=== PATIENT | female | born 1985 | race Caucasian/White ===

== ENCOUNTER 2024-03-15 23:10 | Emergency (ER) | payer MEDICAID, SELFPAY ==
[2024-03-15 23:12] VITALS: BMI 28.2
--- NOTE | 2024-03-16 00:07 | PC.NURSE ---
pt called from lobby with no answer x1
--- NOTE | 2024-03-16 00:16 | PC.NURSE ---
Pt called from lobby x2 with no answer. patrol guard informed me that pt was seen walking away from er.
--- NOTE | 2024-03-16 00:27 | PC.NURSE ---
pt called from lobby x3 with no answer.
== END 2024-03-16 00:27 | disposition left against medical advice (07) ==
PROVIDERS: Emergency Provider Emergency Medicine
DX: Z53.21 Procedure and treatment not carried out due to patient leaving prior to being seen by health care provider (principal)

== ENCOUNTER 2024-05-30 15:29 | Emergency (ER) | payer MEDICAID, SELFPAY ==
[2024-05-30 15:30] VITALS: BMI 28.0
[2024-05-30 16:05] VITALS: BP 126/57; PULSE 110; RESP 17; TEMP 36.9; O2SAT 97
--- NOTE | 2024-05-30 16:08 | XR_ITS ---
Examination: Shoulder,left, 3 views Technique: Shoulder AP internal rotation, AP external rotation, Y view shoulder, 3 views Exam date and time :May 30, 2024 1623 hrs. Indications: Onset shoulder pain and numbness today Findings: No shoulder fracture or shoulder dislocation Mild narrowing glenohumeral joint Mild osteoarthritis acromioclavicular joint No calcific tendinitis Impression: Mild narrowing glenohumeral joint
--- NOTE | 2024-05-30 16:09 | EDRME_ITS ---
Rapid Medical Screening Exam [facility] Arrival date/time: 05/30/24 15:29 38-year-old female presents to the emergency department complaining of left shoulder pain that radiates down the left arm and is causing intermittent numbness. Patient denies any recent trauma or injury. Patient reports took a Vicodin before coming to the hospital. Chief Complaint: Extremity Injury, Upper Vital signs: Vital Signs Temperature 98.5 F 05/30/24 16:05 Pulse Rate 110 H 05/30/24 16:05 Respiratory Rate 17 05/30/24 16:05 Blood Pressure 126/57 L 05/30/24 16:05 Pulse Oximetry (%) 97 05/30/24 16:05 Oxygen Delivery Method Room Air 05/30/24 16:05 Vital signs reviewed by provider: Yes
[2024-05-30] MEDS: DIAZEPAM 5 MG TABLET PO (16:42)
--- NOTE | 2024-06-15 01:39 | PD.EDUPEX ---
Upper Extremity Injury RME/HPI General Chief Complaint: Extremity Injury, Upper Stated Complaint: NUMBESS TO LEFT ARM, X 2 WEEKS Time Seen by Provider: 05/30/24 16:10 Source: patient Arrival date/time: 05/30/24 15:29 38-year-old female presents to the emergency department complaining of left shoulder pain that radiates down the left arm and is causing intermittent numbness. Patient denies any recent trauma or injury. Patient reports took a Vicodin before coming to the hospital. Mode of arrival: ambulatory Limitations: no limitations RME / HPI RME / HPI narrative: 05/30/24 15:29 38-year-old female presents to the emergency department complaining of left shoulder pain that radiates down the left arm and is causing intermittent numbness. Patient denies any recent trauma or injury. Patient reports took a Vicodin before coming to the hospital. Related Data Previous Rx's ?Medication ?Instructions ?Recorded dicyclomine 20 mg tablet 20 mg PO QID PRN abdominal pain 12/10/23 #14 tabs ondansetron 4 mg disintegrating 4 mg PO Q8H PRN nausea and 02/02/24 tablet vomiting #10 tabs acetaminophen 500 mg tablet 1,000 mg (2 x 500 mg) PO QID PRN 03/07/24 pain #20 tabs acetaminophen 500 mg capsule 500 mg PO Q6H PRN pain #30 caps 05/30/24 cyclobenzaprine 10 mg tablet 10 mg PO TID PRN muscle spasm #10 05/30/24 tabs Allergies Allergy/AdvReac Type Severity Reaction Status Date / Time ketorolac Allergy Severe Itching Verified 06/15/24 10:14 Review of Systems Review of Systems Systems Reviewed: All systems reviewed, normal except as documented Constitutional Constitutional: Reports system reviewed and no additional complaints, except as documented, Denies body ache(s), Denies chills and Denies fever(s) Eyes Eyes: Reports system reviewed and no additional complaints, except as documented and Denies change in vision ENT Ears, Nose, Mouth, and Throat: Reports system reviewed and no additional complaints, except as documented, Denies disequilibrium, Denies dizziness, Denies sore throat and Denies vertigo Cardiovascular Cardiovascular: Reports system reviewed and no additional complaints, except as documented, Denies chest pain and Denies dyspnea Respiratory Respiratory: Reports system reviewed and no additional complaints, except as documented, Denies chest congestion, Denies cough and Denies dyspnea Gastrointestinal Gastrointestinal: Reports system reviewed and no additional complaints, except as documented, Denies abdominal pain, Denies nausea and Denies vomiting Musculoskeletal Musculoskeletal: Denies abnormal gait and Reports arthralgias Integumentary/Breasts Skin/Breast: Reports system reviewed and no additional complaints, except as documented, Denies erythema, Denies rash and Denies wounds Neurologic Neurologic: Reports system reviewed and no additional complaints, except as documented, Denies abnormal gait, Denies disequilibrium, Denies dizziness and Denies vertigo Past Medical History Past Medical History NEUROLOGIC: Positive Migraine; Negative Neurological Disorders CARDIAC: Negative Cardiac Disorders, Atrial Fibrillation, Angina, Atherosclerotic Heart Disease, Aneurysm or Congestive Heart Failure RESPIRATORY: Negative Chronic Obstructive Pulmonary Disease (COPD) or Asthma GASTROINTESTINAL: Positive Hepatitis; Negative Gastrointestinal Disorders GENITOURINARY: Positive Genitourinary Disorders; Negative Renal Disease REPRODUCTIVE: Positive Syphilis MUSCULOSKELETAL: Positive Fibromyalgia; Negative Musculoskeletal Disorders ENDOCRINE: Negative Diabetes Mellitus Type 1 or Diabetes Mellitus Type 2 HEMATOLOGIC: Negative Sickle Cell Disease PSYCHO/SOCIAL: Positive Bipolar Disorder, Behavior Problems and Post Traumatic Stress Disorder OTHER HISTORY: Positive MRSA; Negative Autoimmune Disease or Blood Transfusions Family History FAMILY HISTORY: Negative Family Psychiatric Problems, Family Respiratory Disorders, Family Cardiac Disorders, Family Gastrointestinal Problems, Family Cancer, Family Surgery or Family Anesthesia Reaction Surgical History SURGICAL: Positive Abdominal Surgery, Hysterectomy and Tubal Ligation Social History SMOKING STATUS: Heavy (> 1 pack/day) SUBSTANCE USE: marijuana and methamphetamine ED Exam General Limitations: Present no limitations General appearance: Present alert and in no apparent distress Head Head exam: Present atraumatic Eye Eye exam: Present normal appearance, PERRL and EOMI ENT ENT exam: Present normal exam, normal oropharynx and mucous membranes moist Neck Neck exam: Present normal inspection, full ROM and trachea midline Chest Chest inspection: Present normal inspection and symmetric chest wall rise Respiratory Respiratory exam: Present normal lung sounds bilaterally Cardiovascular Cardiovascular exam: Present regular rate, normal rhythm and normal heart sounds Abdominal Exam Abdominal exam: Present soft and normal bowel sounds Extremities Exam Extremities exam: Present normal inspection and full ROM Expanded Upper Extremity Exam Shoulder exam: Present tenderness (left shoulder) Back Exam Back exam: Present normal inspection and full ROM Neurological Exam Neurological exam: Present alert, oriented X3 and CN II-XII intact Psychiatric Psychiatric exam: Present normal affect and normal mood Skin Skin exam: Present warm, dry, intact and normal color Course Quality Measures none Orders Category Date Time Status XR shoulder LT min 2V Stat Exams 05/30/24 16:08 Completed Diazepam [Valium] Med 05/30/24 16:08 Discontinued 5 mg PO X1 ONE Vital Signs Vital signs: Vital Signs Temperature 98.5 F 05/30/24 16:05 Pulse Rate 110 H 05/30/24 16:05 Respiratory Rate 17 05/30/24 16:05 Blood Pressure 126/57 L 05/30/24 16:05 Pulse Oximetry (%) 97 05/30/24 16:05 Oxygen Delivery Method Room Air 05/30/24 16:05 97% RA WNL Extremity Injury MDM Narrative MDM Narrative:: 38-year-old female presents to the emergency department complaining of left shoulder pain that radiates down the left arm and is causing intermittent numbness. Patient denies any recent trauma or injury. Patient reports took a Vicodin before coming to the hospital. XR negative for acute fracture or dislocation. Patient gcs 15 LUE neurovascularly intact. Instructed f/u with pcp and request MRI if symptoms persist. Patient data External records reviewed:: [facility] previous records Clinical information provided by:: patient Social determinants that could affect healthcare access:: none Patient has the following chronic illnesses:: see chart How is presenting disease/condition affected by chronic disease/condition?: exacerbated by Evaluation data The following diagnostics were reviewed and interpreted by me:: radiology exam(s) Lab and/or radiology exams considered but not ordered:: ordered Interpretation Summary: interpreted by me Medications / Prescriptions Medications or Prescriptions considered but not ordered:: ordered Medication administrations:: Medication Administration History Discontinued Medications Diazepam (Diazepam 5 Mg Tablet) 5 mg PO X1 ONE Stop: 05/30/24 16:09 Last Admin: 05/30/24 16:42 Dose: 5 mg Documented By: EE given Consultations Consultation(s) initiated? (list below): No Diagnosis Upper Extremity Injury Differential Diagnosis: dislocation of shoulder Most likely diagnosis given after review of the tests above:: osteoarthritis left shoulder Admission Indicated Admission indicated?: not indicated Admission Request Was there a request for admission?: No Disposition Plan Disposition Plan: Discharge Discharge Attestation Discharge Attestation: The patient and all family members were given an opportunity to ask questions and understood the discharge instructions. Discharge instructions specifically effects, indications for sooner follow up or return to the emergency department, and the expected course of current diagnosis. Patient condition: Stable Discharge Plan Plan Patient Disposition: HOME (Self Care) Disposition Comment: Stable Prescriptions/Referrals Prescriptions/Med Rec: New cyclobenzaprine 10 mg tablet 10 mg PO TID PRN (Reason: muscle spasm) Qty: 10 0RF acetaminophen 500 mg capsule 500 mg PO Q6H PRN (Reason: pain) Qty: 30 0RF No Action ondansetron 4 mg tablet,disintegrating 4 mg PO Q8H PRN (Reason: nausea and vomiting) Qty: 10 0RF acetaminophen 500 mg tablet 1,000 mg PO QID PRN (Reason: pain) Qty: 20 0RF dicyclomine 20 mg tablet 20 mg PO QID PRN (Reason: abdominal pain) Qty: 14 0RF Problem List Clinical Impression: Osteoarthritis of left shoulder Patient/Caregiver Discharge Instructions Discharge Activity: activity as tolerated Education Materials: Arthritis: Exercise, ED Osteoarthritis Additional Instructions: Take medication as prescribed. Follow-up with primary care provider and request physical therapy or MRI of left shoulder if symptoms persist. Return to emergency department for any worsening symptoms or as needed. Print Language: Gabonese Stand Alone Forms: Terese Award Info., Patient Portal Info Letter PA/PNEUMATIC HOIST OPERATOR Supervising Physician PA/PNEUMATIC HOIST OPERATOR Supervising Physician: Dr. Love
== END 2024-05-30 17:14 | disposition home or self-care (01) ==
LOC: SERX 16:57
PROVIDERS: Emergency Provider Emergency Medicine
DX: M19.012 Primary osteoarthritis, left shoulder (principal)
CPT/HCPCS: 73030; 99283; A9270

== ENCOUNTER 2024-06-15 10:12 | Emergency (ER) | payer MEDICAID, SELFPAY ==
[2024-06-15 10:22] VITALS: BP 111/79; PULSE 109; RESP 16; TEMP 36.7; O2SAT 98; BMI 28.3
--- NOTE | 2024-06-15 10:29 | EDNOTE_ITS ---
ED Dental RME/HPI General Chief complaint: Dental/Oral/Throat Stated complaint: UPPER ABSCESS TOOTH INFECTION SPREADING; ABX TAKEN Time Seen by Provider: 06/15/24 10:17 Arrival date/time: 06/15/24 10:12 38-year-old female currently homeless with history of methamphetamine presents the emergency department complaints of dental pain patient states that she does have poor dentition but reports right upper facial pain patient reports that she was on clindamycin and currently on amoxicillin Limitations: no limitations Related Data Previous Rx's ?Medication ?Instructions ?Recorded dicyclomine 20 mg tablet 20 mg PO QID PRN abdominal pain 12/10/23 #14 tabs ondansetron 4 mg disintegrating 4 mg PO Q8H PRN nausea and 02/02/24 tablet vomiting #10 tabs acetaminophen 500 mg tablet 1,000 mg (2 x 500 mg) PO QID PRN 03/07/24 pain #20 tabs acetaminophen 500 mg capsule 500 mg PO Q6H PRN pain #30 caps 05/30/24 cyclobenzaprine 10 mg tablet 10 mg PO TID PRN muscle spasm #10 05/30/24 tabs Allergies Allergy/AdvReac Type Severity Reaction Status Date / Time ketorolac Allergy Severe Itching Verified 06/15/24 10:14 Review of Systems Review of Systems Systems Reviewed: All systems reviewed, normal except as documented Constitutional Constitutional: Reports system reviewed and no additional complaints, except as documented, Denies fever(s) and Denies headache(s) Eyes Eyes: Reports system reviewed and no additional complaints, except as documented and Denies blurry vision ENT Ears, Nose, Mouth, and Throat: Reports system reviewed and no additional complaints, except as documented, Reports dental pain, Reports facial pain, Denies headache(s), Denies nasal congestion and Denies nasal discharge Cardiovascular Cardiovascular: Reports system reviewed and no additional complaints, except as documented, Denies chest pain and Denies dyspnea Respiratory Respiratory: Reports system reviewed and no additional complaints, except as documented, Denies chest congestion, Denies cough and Denies dyspnea Gastrointestinal Gastrointestinal: Reports system reviewed and no additional complaints, except as documented and Denies abdominal pain Integumentary/Breasts Skin/Breast: Reports system reviewed and no additional complaints, except as documented and Denies rash Neurologic Neurologic: Reports system reviewed and no additional complaints, except as documented, Reports as per HPI and Denies headache(s) Past Medical History Past Medical History NEUROLOGIC: Negative Neurological Disorders CARDIAC: Negative Cardiac Disorders ED Exam General Limitations: Present no limitations General appearance: Present alert and in no apparent distress Head Head exam: Present atraumatic, normocephalic and normal inspection Eye Eye exam: Present normal appearance, PERRL and EOMI; Absent conjunctival injection ENT ENT exam: Present mucous membranes moist and other (Dental pain) Neck Neck exam: Present normal inspection, full ROM and trachea midline Chest Chest inspection: Present normal inspection and symmetric chest wall rise Respiratory Respiratory exam: Present normal lung sounds bilaterally; Absent respiratory distress Cardiovascular Cardiovascular exam: Present regular rate, normal rhythm and normal heart sounds Abdominal Exam Abdominal exam: Present soft and normal bowel sounds Extremities Exam Extremities exam: Present normal inspection and full ROM Back Exam Back exam: Present normal inspection and full ROM Neurological Exam Neurological exam: Present alert, oriented X3 and CN II-XII intact Psychiatric Psychiatric exam: Present normal affect and normal mood Skin Skin exam: Present warm, dry, intact and normal color Course Quality Measures none Orders Category Date Time Status HYDROcodone*/APAP 5/325 [Buckeye 5/325] Med 06/15/24 10:29 Discontinued 1 tab PO X1 ONE Lidocaine 1% 20 ml [Xylocaine 1% 20 ML] Med 06/15/24 10:29 Discontinued 2.1 ml INFL X1 ONE cefTRIAXone [Rocephin] Med 06/15/24 10:29 Discontinued 1,000 mg IM X1 ONE Vital Signs Vital signs: Vital Signs Temperature 98.0 F 06/15/24 10:22 Pulse Rate 109 H 06/15/24 10:22 Respiratory Rate 16 06/15/24 10:22 Blood Pressure 111/79 06/15/24 10:22 Pulse Oximetry (%) 98 06/15/24 10:22 Oxygen Delivery Method Room Air 06/15/24 10:22 O2 saturation 98% room air within normal limits Dental / Oral MDM Narrative MDM Narrative:: 38-year-old female currently homeless with history of methamphetamine presents the emergency department complaints of dental pain patient states that she does have poor dentition but reports right upper facial pain patient reports that she was on clindamycin and currently on amoxicillin On exam patient does not appear ill or toxic does not appear immediate distress Patient is Rocephin in the emergency department discharged home with antibiotics Patient discharged home in no distress to follow-up with dentist in the next 24 to 48 hours and for any worsening symptoms to return to the ER immediately Patient data External records reviewed:: [facility] previous records Clinical information provided by:: patient Social determinants that could affect healthcare access:: none (possibly homeless, pt did not disclose ) Patient has the following chronic illnesses:: mrsa in the past How is presenting disease/condition affected by chronic disease/condition?: no chronic disease Evaluation data The following diagnostics were reviewed and interpreted by me:: other (specify) (none ) Lab and/or radiology exams considered but not ordered:: N/A Interpretation Summary: none Medications / Prescriptions Medications or Prescriptions considered but not ordered:: Given Medication administrations:: Medication Administration History Discontinued Medications Hydrocodone Bitart/Acetaminophen (Hydrocodone/Apap 5/325 Tablet) 1 tab PO X1 ONE Stop: 06/15/24 10:30 Last Admin: 06/15/24 10:43 Dose: 1 tab Documented By: MARTINEZ Ceftriaxone Sodium (Ceftriaxone Sod Inj 1,000 Mg Vial) 1,000 mg IM X1 ONE Stop: 06/15/24 10:30 Last Admin: 06/15/24 10:44 Dose: 1,000 mg Documented By: TM Lidocaine HCl (Lidocaine Hcl 1% 20 Ml Vial) 2.1 ml INFL X1 ONE Stop: 06/15/24 10:30 Last Admin: 06/15/24 10:44 Dose: 2.1 ml Documented By: TM Given Consultations Consultation(s) initiated? (list below): No Diagnosis Dental Differential Diagnosis: gingival abscess, dental caries, toothache and dental abscess Most likely diagnosis given after review of the tests above:: Dental abscess Admission Indicated Admission indicated?: not indicated Admission Request Was there a request for admission?: No Disposition Plan Disposition Plan: Discharge Discharge Attestation Discharge Attestation: The patient and all family members were given an opportunity to ask questions and understood the discharge instructions. Discharge instructions specifically effects, indications for sooner follow up or return to the emergency department, and the expected course of current diagnosis. Patient condition: Stable Discharge Plan Plan Patient Disposition: HOME (Self Care) Disposition Comment: Stable Prescriptions/Referrals Prescriptions/Med Rec: No Action ondansetron 4 mg tablet,disintegrating 4 mg PO Q8H PRN (Reason: nausea and vomiting) Qty: 10 0RF acetaminophen 500 mg tablet 1,000 mg PO QID PRN (Reason: pain) Qty: 20 0RF cyclobenzaprine 10 mg tablet 10 mg PO TID PRN (Reason: muscle spasm) Qty: 10 0RF acetaminophen 500 mg capsule 500 mg PO Q6H PRN (Reason: pain) Qty: 30 0RF dicyclomine 20 mg tablet 20 mg PO QID PRN (Reason: abdominal pain) Qty: 14 0RF Problem List Clinical Impression: Pain, dental Patient/Caregiver Discharge Instructions Education Materials: ED Dental Pain Additional Instructions: Take all antibiotics as prescribed follow-up with dentist as soon as possible for worsening symptoms return immediately Print Language: Persian Stand Alone Forms: Terese Award Info., Patient Portal Info Letter PA/CONTROL CLERK AUDITING Supervising Physician PA/CONTROL CLERK AUDITING Supervising Physician: Dr Rodriguez
[2024-06-15] MEDS: HYDROcodone/APAP 5/325 TABLET 1 TAB PO (10:43)
[2024-06-15] MEDS: LIDOCAINE HCL 1% 20 ML VIAL 2.1 ML INFL (10:44)
[2024-06-15] MEDS: cefTRIAXone SOD INJ 1,000 MG VIAL 1000 MG IM (10:44)
--- NOTE | 2024-06-15 10:50 | PC.NURSE ---
SANDWICH, CHIPS, AND JELLO GIVEN TO PT AT DISCHARGE
== END 2024-06-15 10:49 | disposition home or self-care (01) ==
LOC: SERX 11:06
PROVIDERS: Emergency Provider Emergency Medicine; PCP Family Medicine
DX: K08.89 Other specified disorders of teeth and supporting structures (principal); Z59.00 Homelessness unspecified
CPT/HCPCS: 96372; 99283; J0696; J3490; A9270

== ENCOUNTER 2024-07-07 15:19 | Emergency (ER) | payer MEDICAID, SELFPAY ==
[2024-07-07 15:21] VITALS: BMI 28.0
[2024-07-07 15:34] VITALS: BP 113/77; PULSE 100; RESP 18; TEMP 36.7; O2SAT 99
--- NOTE | 2024-07-07 15:50 | XR_ITS ---
Examination: CT cervical spine without contrast 2-D sagittal reconstructions 2-D coronal reconstructions 3-D reconstructions. Exam date and time:July 07, 2024 1603 hours INDICATIONS: Patient fell 3 days ago with injury to the neck, neck pain COMPARISON: March 18, 2024 CTDI:vol (mGy) 8.41 DLP: (mGycm) 196 Technique: Multiple 2 mm axial sections of the cervical spine have been obtained. The coronal and sagittal reconstructions have been obtained. 3-D reconstructions have been obtained. Low dose protocols were performed. One or more of the following dose reduction techniques were used; automated exposure control, adjustment of the mA and/or KV according to patient size, use of iterative reconstruction technique. Findings: Axial sections demonstrate intact base of the skull. C1 exhibit satisfactory relationship to the odontoid. No acute cervical vertebral body fracture seen. Alignment posterior spinous processes satisfactory. Impression: No acute cervical fracture.
--- NOTE | 2024-07-07 15:50 | XR_ITS ---
Examination: CT brain head without contrast. 2-D sagittal coronal reconstructions Date and time of exam:July 07, 2024 1603 hours INDICATIONS: Patient fell 3 days ago with injury to the head, head pain CTDI: vol (mGy):50.7 DLP: (mGycm):1056 Technique: Multiple CT axial sections of the brain have been obtained, 5 mm slice thickness. Contrast has not been administered. 2-D sagittal, coronal reconstructions have been obtained Low dose protocols were performed. One or more of the following dose reduction techniques were used; automated exposure control, adjustment of the mA and/or KV according to patient size, use of iterative reconstruction technique. Findings: No significant ventricular enlargement. Intra-axial or extra-axial hemorrhage density is not seen. No mass effect or midline shift Basal cisterns are not remarkable. Fourth ventricle is midline. Cranial vault intact. Severe chronic sphenoid ethmoid sinusitis Impression: Negative for acute hemorrhage, mass effect or midline shift
--- NOTE | 2024-07-07 15:51 | EKG_ITS ---
[facility] Test Date: 2024-07-07 Pat Name: MASOUD PEREZ Department: Room: - Gender: Female Technical Spec: : 1985 Requested By: Agusto Canseco (ROSA) Order Number: [id number] Reading MD: Agusto Canseco (RETAIL SALESMAN) Measurements Intervals [place] Rate: 96 P: 61 WY: 162 QRS: 14 QRSD: 90 T: 52 QT: 364 QTc: 461 Interpretive Statements SINUS RHYTHM POSSIBLE ANTERIOR MYOCARDIAL INFARCTION , PROBABLY OLD [30 ms Q WAVE IN V3/V4, OR R < 0.2 mV IN V4] Compared to ECG 03/18/2024 00:44:17 Myocardial infarct finding now present /store/S0/[id number].pdf
--- NOTE | 2024-07-07 15:51 | XR_ITS ---
Examination: PA lateral chest 2 views TECHNIQUE: Upright PA lateral chest 2 views Exam date and time: July 07, 2024 1612 hours Comparison March 18, 2024 INDICATIONS: Chest pain beginning 3 days ago. FINDINGS: Normal heart size No pneumonia or pulmonary edema Stable 6 mm pulmonary nodule right upper lobe IMPRESSION: No pneumonia or pulmonary edema Recommend 3 month follow-up PA lateral chest to document stability of small pulmonary nodule right upper lobe
--- NOTE | 2024-07-07 15:51 | PD.EDRME ---
Rapid Medical Screening Exam RME Arrival date/time: 07/07/24 15:19 39-year-old female currently homeless who admits to drug abuse presents emergency department complains of syncopal episode 4 days ago patient ports headache dizziness Chief Complaint: Dizziness Time Seen by Provider: 07/07/24 15:50 Vital signs: Vital Signs Temperature 98.1 F 07/07/24 15:34 Pulse Rate 100 07/07/24 15:34 Respiratory Rate 18 07/07/24 15:34 Blood Pressure 113/77 07/07/24 15:34 Pulse Oximetry (%) 99 07/07/24 15:34 Oxygen Delivery Method Room Air 07/07/24 15:34
[2024-07-07 16:32] LABS: Collection Type, Urine Clean Catch
[2024-07-07 16:42] LABS: Basophils # (Auto) 0.1 Thou/mm3 (0.0-0.2); Basophils % (Auto) 1 % (0-2.5); Eosinophils # (Auto) 0.5 Thou/mm3 (0.0-0.5); Eosinophils % (Auto) 4 % (0-10); Hematocrit 45.6 % (36.0-46.0); Hemoglobin 15.6 g/dL (12.0-16.0); Immature Granulocytes % (Auto) 0 % (0-0); Immature Granulocytes Auto 0.04 Thou/mm3 (0.00-0.00); Lymphocytes # (Auto) 3.2 Thou/mm3 (1.0-4.8); Lymphocytes % (Auto) 29 % (10-50); Mean Corpuscular HGB Conc 34.2 g/dl (31.0-37.0); Mean Corpuscular Hemoglobin 28.8 pg (25.0-35.0); Mean Corpuscular Volume 84 fL (80-100); Monocytes # (Auto) 0.4 Thou/mm3 (0.0-0.8); Monocytes % (Auto) 4 % (0-12); Neutrophils % (Auto) 62 % (37-80); Nucleated Red Blood Cell % 0 /100 WBC (0); Platelet Count 319 Thou/mm3 (140-440); RDW Standard Deviation 39.8 fL (36.4-46.3); Red Blood Count 5.42 Miln/mm3 (4.00-5.20); White Blood Count 11.2 Thou/mm3 (3.6-11.0)
[2024-07-07 16:44] LABS: Bilirubin,Urine Negative (Negative); Blood,Urine Negative (Negative); Clarity,Urine Clear (Clear/Hazy); Color,Urine Yellow (Lt Yel-Yel); Culture Indicated,Urine Not Indicated; Glucose, Urine Negative (Negative); HCG Qualitative,Urine Negative; Ketones,Urine Negative (Negative); Leukocyte Esterase,Urine Negative (Negative); Nitrite,Urine Negative (Negative); PH,Urine 6.5 (5.0-7.0); Protein,Urine Trace (Neg - Trace); RBC,Urine 3 /hpf (0-3); Specific Gravity,Urine 1.031 (1.001-1.035); Squamous Epithelial Cell,Urine 6 /hpf (0-5); WBC,Urine 3 /hpf (0-5)
[2024-07-07 16:51] LABS: Amphetamine/Methamp Scrn,U Positive (Negative); Barbiturate Screen,Urine Negative (Negative); Benzodiazepines Screen,Urine Negative (Negative); Benzoylecgonine Screen, Ur Negative (Negative); Fentanyl Screen,Urine Negative (Negative); Opiate Screen,Urine Negative (Negative); THC Screen,Urine Negative (Negative)
[2024-07-07 17:05] LABS: Alanine Aminotransferase 51 U/L (10-49); Albumin, Serum 4.6 gm/dL (3.5-5.0); Albumin/Globulin Ratio 1.7 (1.2-2.2); Alkaline Phosphatase 90 U/L (46-116); Anion Gap 10 (7-16); Aspartate Amino Transferase 35 U/L (0-34); BUN/Creatinine Ratio 21 Ratio (12-20); Bilirubin,Total 0.2 mg/dL (0.3-1.2); Blood Urea Nitrogen 15 mg/dL (9-23); Calcium 9.1 mg/dL (8.3-10.6); Calcium (Corrected) 9.1 mg/dL (8.5-10.1); Carbon Dioxide 23.1 mMol/L (20.0-31.0); Chloride 102 mMol/L (98-107); Creatinine (Component) 0.7 mg/dL (0.6-1.3); Estimated Creatinine Clearance 127.6 mL/min (>60); Globulin 2.7 gm/dL (2.3-3.5); Glucose 99 mg/dL (74-106); Osmolality,Calculated 270 (275-295); Sodium 135 mMol/L (136-145); Total Protein 7.3 gm/dL (5.7-8.2); Troponin I < 0.002 ng/mL (0.0-0.045); eGFR > 60 See Note
[2024-07-07] MEDS: ONDANSETRON ODT 4 MG TABRAP PO (17:12)
--- NOTE | 2024-07-07 18:00 | PC.NURSE ---
no answer in lobby when called for room in ed
--- NOTE | 2024-07-07 18:23 | PC.NURSE ---
no answer in lobby when called for room in ed
--- NOTE | 2024-07-07 18:53 | PC.NURSE ---
NA in lobby. Pt. not in lobby. Called on cell phone but goes straight to voicemail.
--- NOTE | 2024-07-07 19:06 | PC.NURSE ---
Pt. called back and states she is at home and will not return to facility today. Provider aware and will remove from track board
== END 2024-07-07 19:15 | disposition left against medical advice (07) ==
PROVIDERS: Nurse Practitioner Primary Care; Emergency Provider Emergency Medicine
DX: R42 Dizziness and giddiness (principal); R55 Syncope and collapse; R07.9 Chest pain, unspecified; R94.31 Abnormal electrocardiogram [ECG] [EKG]; S19.9XXA Unspecified injury of neck, initial encounter; S09.90XA Unspecified injury of head, initial encounter; W19.XXXA Unspecified fall, initial encounter; Z59.00 Homelessness unspecified; Z53.29 Procedure and treatment not carried out because of patient's decision for other reasons
CPT/HCPCS: 36415; 70450; 71046; 72125; 80053; 80307; 81001; 81025; 84484; 85025; 93005; 99281; Q0162

== ENCOUNTER 2024-09-14 05:35 | Emergency (ER) | payer MEDICAID, SELFPAY ==
[2024-09-14 05:36] VITALS: BMI 26.6
[2024-09-14 05:56] VITALS: BP 125/86; PULSE 111; RESP 18; TEMP 37; O2SAT 98
[2024-09-14 06:20] VITALS: BP 127/84; PULSE 82; RESP 18; TEMP 36.8; O2SAT 98
[2024-09-14 06:52] LABS: Basophils # (Auto) 0.1 Thou/mm3 (0.0-0.2); Basophils % (Auto) 1 % (0-2.5); Eosinophils # (Auto) 0.3 Thou/mm3 (0.0-0.5); Eosinophils % (Auto) 3 % (0-10); Hematocrit 42.5 % (36.0-46.0); Hemoglobin 14.6 g/dL (12.0-16.0); Immature Granulocytes % (Auto) 0 % (0-0); Immature Granulocytes Auto 0.03 Thou/mm3 (0.00-0.00); Lymphocytes # (Auto) 4.1 Thou/mm3 (1.0-4.8); Lymphocytes % (Auto) 33 % (10-50); Mean Corpuscular HGB Conc 34.4 g/dl (31.0-37.0); Mean Corpuscular Hemoglobin 28.3 pg (25.0-35.0); Mean Corpuscular Volume 83 fL (80-100); Monocytes # (Auto) 0.6 Thou/mm3 (0.0-0.8); Monocytes % (Auto) 5 % (0-12); Neutrophils # (Auto) 7.2 Thou/mm3 (1.8-7.7); Neutrophils % (Auto) 59 % (37-80); Nucleated Red Blood Cell % 0 /100 WBC (0); Platelet Count 244 Thou/mm3 (140-440); Red Blood Count 5.15 Miln/mm3 (4.00-5.20); White Blood Count 12.2 Thou/mm3 (3.6-11.0)
[2024-09-14 07:19] LABS: HCG,Qualitative Serum Negative
[2024-09-14 07:41] VITALS: BP 123/81; PULSE 88; RESP 22; TEMP 36.9; O2SAT 100
[2024-09-14 08:14] LABS: Acetaminophen < 2.0 mcg/mL (10.0-20.0); Alanine Aminotransferase 35 U/L (10-49); Albumin, Serum 4.2 gm/dL (3.5-5.0); Albumin/Globulin Ratio 1.6 (1.2-2.2); Alcohol, Blood Medical < 3.0 mg/dL (0-10.0); Alkaline Phosphatase 78 U/L (46-116); Anion Gap 9 (7-16); Aspartate Amino Transferase 24 U/L (0-34); BUN/Creatinine Ratio 17 Ratio (12-20); Bilirubin,Total 0.4 mg/dL (0.3-1.2); Blood Urea Nitrogen 10 mg/dL (9-23); Calcium 8.9 mg/dL (8.3-10.6); Calcium (Corrected) 8.9 mg/dL (8.5-10.1); Carbon Dioxide 20.3 mMol/L (20.0-31.0); Chloride 107 mMol/L (98-107); Creatinine (Component) 0.6 mg/dL (0.6-1.3); Estimated Creatinine Clearance 145.3 mL/min (>60); Globulin 2.7 gm/dL (2.3-3.5); Glucose 90 mg/dL (74-106); Magnesium 2.3 mg/dL (1.6-2.6); Osmolality,Calculated 270 (275-295); Potassium 3.7 mMol/L (3.4-5.1); Salicylate < 3.0 mg/dL; Sodium 136 mMol/L (136-145); Thyroid Stimulating Hormone 7.27 uIU/mL (0.55-4.78); Total Protein 6.9 gm/dL (5.7-8.2); eGFR > 60 See Note
[2024-09-14 10:48] VITALS: BP 112/74; PULSE 93; RESP 20; TEMP 36.9; O2SAT 97
--- NOTE | 2024-09-14 11:21 | PC.NURSE ---
Pt requested for nurse to call [facility] to nortify that she will not be making her appointment today. I contacted [facility] and spoke with ruben regarding pt not able to attend her court today,.
[2024-09-14 12:37] LABS: Collection Type, Urine Clean Catch
[2024-09-14 12:47] LABS: Bacteria,Urine Rare; Bilirubin,Urine Negative (Negative); Blood,Urine Negative (Negative); Clarity,Urine Clear (Clear/Hazy); Color,Urine Yellow (Lt Yel-Yel); Culture Indicated,Urine Not Indicated; Glucose, Urine Negative (Negative); Ketones,Urine Negative (Negative); Leukocyte Esterase,Urine Negative (Negative); Nitrite,Urine Negative (Negative); Protein,Urine Negative (Neg - Trace); RBC,Urine 2 /hpf (0-3); Specific Gravity,Urine 1.024 (1.001-1.035); Squamous Epithelial Cell,Urine 3 /hpf (0-5); WBC,Urine 2 /hpf (0-5)
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
[2024-09-14 13:30] LABS: Amphetamine/Methamp Scrn,U Positive (Negative); Barbiturate Screen,Urine Negative (Negative); Benzodiazepines Screen,Urine Negative (Negative); Benzoylecgonine Screen, Ur Negative (Negative); Fentanyl Screen,Urine Negative (Negative); Opiate Screen,Urine Negative (Negative); THC Screen,Urine Positive (Negative)
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
--- NOTE | 2024-09-14 15:59 | PC.NURSE ---
[place] [employer] here to take report from patient.
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
== END 2024-09-14 16:25 | disposition home or self-care (01) ==
PROVIDERS: Emergency Provider Emergency Medicine
DX: T74.11XA Adult physical abuse, confirmed, initial encounter (principal); G47.00 Insomnia, unspecified; F15.10 Other stimulant abuse, uncomplicated; F12.10 Cannabis abuse, uncomplicated; Y04.8XXA Assault by other bodily force, initial encounter; Y07.030 Male partner, current, perpetrator of maltreatment and neglect
CPT/HCPCS: 36415; 80053; 80307; 80320; 80329; 81001; 83735; 84443; 84703; 85025; 90839; 96127; 99284; G0480

== ENCOUNTER 2025-05-19 08:05 | Emergency (ER) | payer MEDICAID, SELFPAY ==
[2025-05-19 08:13] VITALS: BP 135/84; PULSE 118; RESP 20; TEMP 36.9; O2SAT 97
--- NOTE | 2025-05-19 08:18 | EKG_ITS ---
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[id number] Requested By: Agusto Canseco (ROSA) Order Number: [id number] Reading MD: Agusto Canseco (ROSA) Measurements Intervals [place] Rate: 111 P: 63 OH: 171 QRS: -53 QRSD: 100 T: 43 QT: 333 QTc: 453 Interpretive Statements SINUS TACHYCARDIA POSSIBLE LEFT ATRIAL ENLARGEMENT [-0.1mV P-WAVE IN V1/V2] LOW QRS VOLTAGE IN PRECORDIAL LEADS [QRS DEFLECTION < 1.0 mV IN CHEST LEADS] LEFT ANTERIOR FASCICULAR BLOCK [QRS AXIS <= -45, QR IN I, RS IN II] POSSIBLE ANTERIOR MYOCARDIAL INFARCTION , PROBABLY OLD [30 ms Q WAVE IN V3/V4, OR R < 0.2 mV IN V4] Compared to ECG 07/07/2024 15:56:46 Low QRS voltage now present Left anterior fascicular block now present Sinus rhythm no longer present Myocardial infarct finding still present /store/[id number].pdf
--- NOTE | 2025-05-19 08:19 | XR_ITS ---
EXAMINATION: PA lateral chest 2 views TECHNIQUE: Upright PA lateral chest 2 views Date and time: May 19, 2025, 0859 hours, comparison July 07, 2024. INDICATIONS: Chest pain swelling in the extremities 3 months. FINDINGS: Stable small pulmonary nodule right upper lobe. Normal heart size. No interval pneumonia or pulmonary edema IMPRESSION: No interval pneumonia or pulmonary edema
--- NOTE | 2025-05-19 08:19 | XR_ITS ---
Examination: Abdomen sonogram, Limited Date and time of exam: May 19, 2025, 0832 hours INDICATIONS: Abdominal distention this week Technique: Real-time salvador scale transabdominal sonographic images of the upper abdomen obtained. Findings: No ascites IMPRESSION: No ascites
--- NOTE | 2025-05-19 09:08 | PD.EDRME ---
Rapid Medical Screening Exam RME Arrival date/time: 05/19/25 08:05 39-year-old female presents to the Emergency Department for complaints of abdominal distention and lower extremity swelling Chief Complaint: General Adult/Misc Complain Time Seen by Provider: 05/19/25 08:32 Vital signs: Vital Signs Temperature 98.4 F 05/19/25 08:13 Pulse Rate 118 H 05/19/25 08:13 Respiratory Rate 20 05/19/25 08:13 Blood Pressure 135/84 H 05/19/25 08:13 Pulse Oximetry (%) 97 05/19/25 08:13 Oxygen Delivery Method Room Air 05/19/25 08:13 Vital signs reviewed by provider: Yes Exam: On exam patient has swelling of her abdomen as well as lower extremities Clinical Impression: Lab work and imaging ordered
[2025-05-19 09:45] LABS: Basophils # (Auto) 0.1 Thou/mm3 (0.0-0.2); Basophils % (Auto) 1 % (0-2.5); Eosinophils # (Auto) 0.3 Thou/mm3 (0.0-0.5); Eosinophils % (Auto) 3 % (0-10); Hematocrit 36.2 % (36.0-46.0); Hemoglobin 12.3 g/dL (12.0-16.0); Immature Granulocytes Auto 0.04 Thou/mm3 (0.00-0.00); Lymphocytes # (Auto) 3.7 Thou/mm3 (1.0-4.8); Lymphocytes % (Auto) 37 % (10-50); Mean Corpuscular HGB Conc 34.0 g/dl (31.0-37.0); Mean Corpuscular Hemoglobin 28.6 pg (25.0-35.0); Mean Corpuscular Volume 84 fL (80-100); Monocytes # (Auto) 0.6 Thou/mm3 (0.0-0.8); Monocytes % (Auto) 6 % (0-12); Neutrophils # (Auto) 5.5 Thou/mm3 (1.8-7.7); Neutrophils % (Auto) 54 % (37-80); Nucleated Red Blood Cell # 0.00 Thou/mm3 (0.00-0.00); Nucleated Red Blood Cell % 0 /100 WBC (0); Platelet Count 216 Thou/mm3 (140-440); RDW Standard Deviation 42.5 fL (36.4-46.3); Red Blood Count 4.30 Miln/mm3 (4.00-5.20); White Blood Count 10.2 Thou/mm3 (3.6-11.0)
[2025-05-19 10:10] LABS: Alanine Aminotransferase 28 U/L (10-49); Albumin, Serum 3.8 gm/dL (3.5-5.0); Albumin/Globulin Ratio 1.8 (1.2-2.2); Alkaline Phosphatase 71 U/L (46-116); Anion Gap 10 (7-16); Aspartate Amino Transferase 25 U/L (0-34); BUN/Creatinine Ratio 11 Ratio (12-20); Bilirubin,Total 0.2 mg/dL (0.3-1.2); Blood Urea Nitrogen 9 mg/dL (9-23); Calcium 8.7 mg/dL (8.3-10.6); Calcium (Corrected) 8.9 mg/dL (8.5-10.1); Carbon Dioxide 20.6 mMol/L (20.0-31.0); Chloride 111 mMol/L (98-107); Creatinine (Component) 0.8 mg/dL (0.6-1.3); Globulin 2.1 gm/dL (2.3-3.5); Glucose 110 mg/dL (74-106); Lipase 33 U/L (12-53); Magnesium 2.1 mg/dL (1.6-2.6); Osmolality,Calculated 282 (275-295); Potassium 3.8 mMol/L (3.4-5.1); Sodium 142 mMol/L (136-145); Total Protein 5.9 gm/dL (5.7-8.2); Troponin I < 0.002 ng/mL (0.0-0.045); eGFR > 60 See Note
[2025-05-19 10:11] LABS: INR 0.9 (0.9-1.3); Partial Thromboplastin Time 25.1 Seconds (22.0-36.0); Prothrombin Time 10.0 Seconds (9.0-12.2)
[2025-05-19 10:32] LABS: B-Type Natriuretic Peptide < 20 pg/mL (0-100)
[2025-05-19 10:46] LABS: Hepatitis A Antibody IgM Non Reactive (Non React); Hepatitis B Core Antibody IgM Non Reactive (Non React); Hepatitis B Surface Antigen Non Reactive (Non React); Hepatitis C Antibody Reactive (Non React)
--- NOTE | 2025-05-19 11:17 | PD.EDADULT ---
ED General RME/HPI General Chief complaint: General Adult/Misc Complain Stated complaint: SWOLLEN STOMACH AND LOWER EXTREMITIES Time Seen by Provider: 05/19/25 08:32 Arrival date/time: 05/19/25 08:05 39-year-old female patient with significant history of methamphetamine abuse, came in for evaluation regarding swelling to bilateral lower extremities and lower abdomen. Is been ongoing for several days, severity of symptoms mild. Patient denies any orthopnea denies any shortness of breath denies any chest pain denies any fever denies any other complaints. Patient also denies any trauma to the legs. RME / HPI RME / HPI narrative: 05/19/25 08:05 39-year-old female presents to the Emergency Department for complaints of abdominal distention and lower extremity swelling Exam: On exam patient has swelling of her abdomen as well as lower extremities Impression: Lab work and imaging ordered Related Data Previous Rx's ?Medication ?Instructions ?Recorded dicyclomine 20 mg tablet 20 mg PO QID PRN abdominal pain 12/10/23 #14 tabs ondansetron 4 mg disintegrating 4 mg PO Q8H PRN nausea and 02/02/24 tablet vomiting #10 tabs acetaminophen 500 mg tablet 1,000 mg (2 x 500 mg) PO QID PRN 03/07/24 pain #20 tabs acetaminophen 500 mg capsule 500 mg PO Q6H PRN pain #30 caps 05/30/24 cyclobenzaprine 10 mg tablet 10 mg PO TID PRN muscle spasm #10 05/30/24 tabs lorazepam 2 mg tablet (Ativan) 2 mg PO .bedtime PRN insomnia #10 09/14/24 tabs Allergies Allergy/AdvReac Type Severity Reaction Status Date / Time ketorolac Allergy Severe Itching Verified 05/19/25 08:07 Review of Systems Review of Systems Narrative Review of Systems: Review of system reviewed and within normal limits except mentioned in HPI ED Exam Narrative Physical exam: VITAL SIGNS: Reviewed. GENERAL APPEARANCE: Alert and interactive, follows commands, no acute distress, HEAD AND FACE: Non-traumatic. ENT: PERRL, pink conjunctivitis, eyelid no trauma, Mucous membrane moist. NECK: Supple, nontender, no nuchal rigidity. CHEST: No tenderness, no crepitus, no paradoxical movement, no retractions. LUNGS: Clear, well ventilated, symmetric, no rales, no wheezing, no ronchi, no stridor, good breath sounds bilaterally. HEART: Regular rate, regular rhythm, no murmur, no gallops. ABDOMEN: Soft, positive bowel sounds, nondistended, no guarding, nontender, no rebound, no masses, RECTAL: Deferred. GENITAL: Deferred. NEUROLOGICAL: Gross motor function intact sensory function intact, Appropriate for age. MUSCULOSKELETAL: low back nontender, full range of motion. EXTREMITIES: Bilateral +2 lower extremity edema, nontender, full range of motion. SKIN: Color pink, dry, no rash, no lacerations, no abrasions, no contusions. LYMPHATICS: Deferred. Course Quality Measures none Orders Category Date Time Status EKG (ED ONLY) *Do not use* NOW Care 05/19/25 08:18 Completed EKG (ED Only) Stat Exams 05/19/25 08:18 Draft US abdomen limited Stat Exams 05/19/25 08:19 Completed XR chest 2V Stat Exams 05/19/25 08:19 Completed B-Type Natriuretic Peptide Stat Lab 05/19/25 09:15 Completed CBC Stat Lab 05/19/25 09:15 Completed Comprehensive Metabolic Panel Stat Lab 05/19/25 09:15 Completed Drug Screen,Urine Stat Lab 05/19/25 08:19 Ordered HCG Qualitative,Urine Stat Lab 05/19/25 08:19 Ordered Hepatitis Acute Panel Stat Lab 05/19/25 09:15 Completed Lipase Stat Lab 05/19/25 09:15 Completed Magnesium Stat Lab 05/19/25 09:15 Completed Partial Thromboplastin Time Stat Lab 05/19/25 09:15 Completed Prothrombin Time with INR Stat Lab 05/19/25 09:15 Completed Troponin I Stat Lab 05/19/25 09:15 Completed Urinalysis, C/S if Indicated Stat Lab 05/19/25 08:19 Ordered Vital Signs Vital signs: Vital Signs Temperature 98.4 F 05/19/25 08:13 Pulse Rate 118 H 05/19/25 08:13 Respiratory Rate 20 05/19/25 08:13 Blood Pressure 135/84 H 05/19/25 08:13 Pulse Oximetry (%) 97 05/19/25 08:13 Oxygen Delivery Method Room Air 05/19/25 08:13 Discharge Plan Plan Patient Disposition: Elopement Prescriptions/Referrals Prescriptions/Med Rec: No Action ondansetron 4 mg tablet,disintegrating 4 mg PO Q8H PRN (Reason: nausea and vomiting) Qty: 10 0RF acetaminophen 500 mg tablet 1,000 mg PO QID PRN (Reason: pain) Qty: 20 0RF cyclobenzaprine 10 mg tablet 10 mg PO TID PRN (Reason: muscle spasm) Qty: 10 0RF acetaminophen 500 mg capsule 500 mg PO Q6H PRN (Reason: pain) Qty: 30 0RF lorazepam [Ativan] 2 mg tablet 2 mg PO .bedtime PRN (Reason: insomnia) Qty: 10 0RF dicyclomine 20 mg tablet 20 mg PO QID PRN (Reason: abdominal pain) Qty: 14 0RF Referrals: Mao Shaffer MD [Primary Care Provider, Family Practice] - In 1 week Problem List Clinical Impression: Bilateral edema of lower extremity Patient/Caregiver Discharge Instructions Print Language: Malay MDM Narrative MDM hospital course (for use when minimal MDM required): 39-year-old female patient with significant history of methamphetamine abuse, came in for evaluation regarding swelling to bilateral lower extremities and lower abdomen. Is been ongoing for several days, severity of symptoms mild. Patient denies any orthopnea denies any shortness of breath denies any chest pain denies any fever denies any other complaints. Patient also denies any trauma to the legs. Patient's workup today all came back unremarkable no leukocytosis, CMP unremarkable no creatinine is normal LFTs are normal except for hepatitis C positive. Chest x-ray no pulmonary edema no no pneumonia no infiltrates noted. Ultrasound of the abdomen showed no ascites. EKG showed sinus tachycardia, ventricular rate of 111 bpm, no ST segment elevation or depression noted. Patient eloped from the emergency room Clinical Information Provided by: patient Medical Records reviewed [facility] Labs/Rad/Tests considered, not ordered Describe: None Chronic Illness/Social Conditions Explain: Methamphetamine abuse see results [facility] Labs Lab(s) Interpretation(s): See results in [facility] Diagnosis Differential Diagnosis ED Complaint MDM: Lower limb edema, congestive heart failure, lymphedema Diagnoses ruled out and/or further discussions: Lower leg edema
--- NOTE | 2025-05-19 11:42 | PC.NURSE ---
NO ANSWER X3 @ 9212, 1125, 1133 PT ELOPED FROM TRIAGE
== END 2025-05-19 11:44 | disposition left against medical advice (07) ==
PROVIDERS: Nurse Practitioner Primary Care; Emergency Provider Emergency Medicine; PCP Family Medicine
DX: F15.10 Other stimulant abuse, uncomplicated (principal)
CPT/HCPCS: 36415; 71046; 76705; 80053; 80074; 80307; 81001; 81025; 83690; 83735; 83880; 84484; 85025; 85610; 85730; 93005; 99283

== ENCOUNTER 2025-05-19 12:57 | Emergency (ER) | payer MEDICAID, SELFPAY ==
[2025-05-19 13:08] VITALS: BP 112/71; PULSE 113; RESP 20; TEMP 36.6; O2SAT 97
--- NOTE | 2025-05-19 13:22 | PC.NURSE ---
patient stated that her ride was here and she needed to leave, patient did give urine sample. Patient educated on risk vs benefit of leaving against medical advice including risk of , patient verbalized understanding. patient signed out AMA at [id number].
--- NOTE | 2025-05-19 13:32 | EDNOTE_ITS ---
ED General RME/HPI General Chief complaint: Abdominal Pain Stated complaint: ABD SWELLING Time Seen by Provider: 05/19/25 13:03 Arrival date/time: 05/19/25 12:57 39-year-old female with medical history significant for methamphetamine abuse as well as hepatitis C presents to the emergency department for complaints of abdominal distention and lower extremity swelling patient reports no fever nausea or vomiting Limitations: no limitations Related Data Previous Rx's ?Medication ?Instructions ?Recorded dicyclomine 20 mg tablet 20 mg PO QID PRN abdominal p ain 12/10/23 #14 tabs ondansetron 4 mg disintegrating 4 mg PO Q8H PRN nausea and 02/02/24 tablet vomiting #10 tabs acetaminophen 500 mg tablet 1,000 mg (2 x 500 mg) PO Q ID PRN 03/07/24 pain #20 tabs acetaminophen 500 mg capsule 500 mg PO Q6H PRN pain #3 0 caps 05/30/24 cyclobenzaprine 10 mg tablet 10 mg PO TID PRN muscle s pasm #10 05/30/24 tabs lorazepam 2 mg tablet (Ativan) 2 mg PO .bedtime PRN in somnia #10 09/14/24 tabs furosemide 20 mg tablet (Lasix) 20 mg PO QAM 5 days #5 tabs 05/19/25 Allergies Allergy/AdvReac Type Severity Reaction Status Date / Time ketorolac Allergy Severe Itching Verified 05/19/25 08:07 Review of Systems Review of Systems Systems Reviewed: All systems reviewed, normal except as documented Constitutional Constitutional: Reports system reviewed and no additional complaints, except as documented, Denies fever(s) and Denies headache(s) Eyes Eyes: Reports system reviewed and no additional complaints, except as documented and Denies blurry vision ENT Ears, Nose, Mouth, and Throat: Reports system reviewed and no additional complaints, except as documented, Denies headache(s), Denies nasal congestion and Denies nasal discharge Cardiovascular Cardiovascular: Reports system reviewed and no additional complaints, except as documented, Denies chest pain and Denies dyspnea Respiratory Respiratory: Reports system reviewed and no additional complaints, except as documented, Denies chest congestion, Denies cough and Denies dyspnea Gastrointestinal Gastrointestinal: Reports system reviewed and no additional complaints, except as documented and Denies abdominal pain Musculoskeletal Musculoskeletal: Reports system reviewed and no additional complaints, except as documented and Reports other (Lower extremity swelling abdominal swelling) Integumentary/Breasts Skin/Breast: Reports system reviewed and no additional complaints, except as documented and Denies rash Neurologic Neurologic: Reports system reviewed and no additional complaints, except as documented, Reports as per HPI and Denies headache(s) Past Medical History Past Medical History NEUROLOGIC: Positive Migraine; Negative Neurological Disorders CARDIAC: Negative Cardiac Disorders, Atrial Fibrillation, Angina, Athe rosclerotic Heart Disease, Aneurysm or Congestive Heart Failure RESPIRATORY: Negative Chronic Obstructive Pulmonary Disease (COPD) or Asthma GASTROINTESTINAL: Positive Hepatitis; Negative Gastrointestinal Disorders GENITOURINARY: Positive Genitourinary Disorders; Negative Renal Disease REPRODUCTIVE: Positive Syphilis MUSCULOSKELETAL: Positive Fibromyalgia; Negative Musculoskeletal Disorders ENDOCRINE: Negative Diabetes Mellitus Type 1 or Diabetes Mellitus Type 2 HEMATOLOGIC: Negative Sickle Cell Disease PSYCHO/SOCIAL: Positive Bipolar Disorder, Behavior Problems and Post Traumatic Stress Disorder OTHER HISTORY: Positive MRSA; Negative Autoimmune Disease or Blood Transfusions Family History FAMILY HISTORY: Negative Family Psychiatric Problems, Family Respiratory Disorders, Family Cardiac Disorders, Family Gastrointestinal Problems, Family Cancer, Family Surgery or Family Anesthesia Reaction Surgical History SURGICAL: Positive Abdominal Surgery, Hysterectomy and Tubal Ligation Social History SMOKING STATUS: Current every day smoker SUBSTANCE USE: marijuana and methamphetamine ED Exam General Limitations: Present no limitations General appearance: Present alert and in no apparent distress Head Head exam: Present atraumatic, normocephalic and normal inspection Eye Eye exam: Present normal appearance, PERRL and EOMI; Absent conjunctival injection ENT ENT exam: Present normal exam, normal oropharynx and mucous membranes moist Neck Neck exam: Present normal inspection, full ROM and trachea midline Chest Chest inspection: Present normal inspection and symmetric chest wall rise Respiratory Respiratory exam: Present normal lung sounds bilaterally; Absent respiratory distress Cardiovascular Cardiovascular exam: Present regular rate, normal rhythm and normal heart sounds Abdominal Exam Abdominal exam: Present soft and normal bowel sounds; Absent distention, tenderness, guarding, rebound or rigidity Extremities Exam Extremities exam: Present normal inspection and full ROM Back Exam Back exam: Present normal inspection and full ROM Neurological Exam Neurological exam: Present alert, oriented X3 and CN II-XII intact Psychiatric Psychiatric exam: Present normal affect and normal mood Skin Skin exam: Present warm, dry, intact and normal color Course Quality Measures none Orders Category Date Time Status Drug Screen,Urine Stat Lab 05/19/25 13:15 Completed HCG Qualitative,Urine Stat Lab 05/19/25 13:15 Completed UA, C/S IF [Urinalysis, C/S if Indicated] Stat Lab 05/19/25 13:15 Completed Vital Signs Vital signs: Vital Signs Temperature 97.9 F 05/19/25 13:08 Pulse Rate 113 H 05/19/25 13:08 Respiratory Rate 20 05/19/25 13:08 Blood Pressure 112/71 05/19/25 13:08 Pulse Oximetry (%) 97 05/19/25 13:08 Oxygen Delivery Method Room Air 05/19/25 13:08 O2 saturation 97% room air within normal limits Discharge Plan Plan Patient Disposition: Left Against Medical Advice Discharge Disposition comment: Stable Prescriptions/Referrals Prescriptions/Med Rec: New furosemide [Lasix] 20 mg tablet 20 mg PO QAM 5 Days Qty: 5 0RF No Action ondansetron 4 mg tablet,disintegrating 4 mg PO Q8H PRN (Reason: nausea and vomiting) Qty: 10 0RF acetaminophen 500 mg tablet 1,000 mg PO QID PRN (Reason: pain) Qty: 20 0RF cyclobenzaprine 10 mg tablet 10 mg PO TID PRN (Reason: muscle spasm) Qty: 10 0RF acetaminophen 500 mg capsule 500 mg PO Q6H PRN (Reason: pain) Qty: 30 0RF lorazepam [Ativan] 2 mg tablet 2 mg PO .bedtime PRN (Reason: insomnia) Qty: 10 0RF dicyclomine 20 mg tablet 20 mg PO QID PRN (Reason: abdominal pain) Qty: 14 0RF Problem List Clinical Impression: Dependent edema Patient/Caregiver Discharge Instructions Education Materials: ED Lymphedema Additional Instructions: Please return immediately for further evaluation Print Language: Mongolian PA/BLOGS MANAGER Supervising Physician PA/BLOGS MANAGER Supervising Physician: Dr. Graham MDM Narrative [facility] hospital course (for use when minimal MDM required): 39-year-old female with medical history significant for methamphetamine abuse as well as hepatitis C presents to the emergency department for complaints of abdominal distention and lower extremity swelling patient reports no fever nausea or vomiting Lab work and imaging obtained Patient reports that she cannot stay for CT scan and reports she would just like a water pill and like to be discharged home Patient given a prescription for Lasix for 5 days Patient signed out AGAINST MEDICAL ADVICE as I was unable to obtain a CT scan for the patient Clinical Information Provided by: patient Medical Records reviewed [facility] Meds/Rx considered, not ordered describe: Given Labs/Rad/Tests considered, not ordered Describe: Obtain Chronic Illness/Social Conditions which may negatively complicate care or outcome(s)-explain: Homeless Labs Labs: see narrative above Lab(s) Interpretation(s): Labs obtained previous visit Imaging Imaging interpretation: interpreted by me Medication Administration(s) none Diagnosis Differential Diagnosis ED Complaint MDM: Cirrhosis, ascites, drug abuse, fluid overload, cirrhosis
[2025-05-19 13:45] LABS: Collection Type, Urine Clean Catch
[2025-05-19 14:03] LABS: Bacteria,Urine 1+; Bilirubin,Urine Negative (Negative); Blood,Urine Negative (Negative); Color,Urine Yellow (Lt Yel-Yel); Culture Indicated,Urine Contaminated; Glucose, Urine Negative (Negative); Ketones,Urine Negative (Negative); Leukocyte Esterase,Urine Positive (Negative); Nitrite,Urine Negative (Negative); PH,Urine 5.5 (5.0-7.0); Protein,Urine Trace (Neg - Trace); RBC,Urine 7 /hpf (0-3); Specific Gravity,Urine 1.027 (1.001-1.035); Squamous Epithelial Cell,Urine 12 /hpf (0-5); Urobilinogen,Urine Negative mg/dL (0.0-1.0); WBC,Urine 9 /hpf (0-5)
[2025-05-19 14:05] LABS: Clarity,Urine Hazy (Clear/Hazy); HCG Qualitative,Urine Negative
[2025-05-19 14:20] LABS: Amphetamine/Methamp Scrn,U Positive (Negative); Barbiturate Screen,Urine Negative (Negative); Benzodiazepines Screen,Urine Negative (Negative); Benzoylecgonine Screen, Ur Negative (Negative); Fentanyl Screen,Urine Negative (Negative); Opiate Screen,Urine Negative (Negative); THC Screen,Urine Negative (Negative)
== END 2025-05-19 13:22 | disposition left against medical advice (07) ==
LOC: SERX 13:31
PROVIDERS: Nurse Practitioner Primary Care; Emergency Provider Emergency Medicine
DX: Z53.21 Procedure and treatment not carried out due to patient leaving prior to being seen by health care provider (principal)
CPT/HCPCS: 80307; 81001; 81025; 99282

== ENCOUNTER 2025-06-06 17:09 | Emergency (ER) | payer MEDICAID, SELFPAY ==
[2025-06-06 17:10] VITALS: BMI 29.5
[2025-06-06 17:36] VITALS: BP 123/85; PULSE 99; RESP 20; TEMP 36.7; O2SAT 96
--- NOTE | 2025-06-06 17:36 | XR_ITS ---
Examination: Abdomen sonogram, Limited Date and time of exam: June 06 2025, 1759 hours INDICATIONS: Abdominal pain and vomiting beginning today, cholecystectomy, cirrhosis diagnosis on ultrasound 2023 Technique: Real-time salvador scale transabdominal sonographic images of the upper abdomen obtained. Findings: Absent gallbladder Common bile duct 0.3 cm Pancreatic head 3.5 cm Liver 18.5 cm fatty infiltration no focal liver lesion Normal hepatopetal portal venous flow Patent IVC IMPRESSION: Normal common bile duct Mildly prominent pancreatic head, clinical correlation advised. Moderate hepatomegaly fatty infiltration no focal liver lesions
--- NOTE | 2025-06-06 17:37 | PD.EDRME ---
Rapid Medical Screening Exam RME Arrival date/time: 06/06/25 17:09 This is a case of 39-year-old female who came into the emergency room due to abdominal pain nausea vomiting today patient also need medication refill for his Seroquel Chief Complaint: Nausea/Vomiting/Diarrhea Time Seen by Provider: 06/06/25 17:33 Vital signs: Vital Signs Temperature 98.1 F 06/06/25 17:36 Pulse Rate 99 06/06/25 17:36 Respiratory Rate 20 06/06/25 17:36 Blood Pressure 123/85 H 06/06/25 17:36 Pulse Oximetry (%) 96 06/06/25 17:36 Oxygen Delivery Method Room Air 06/06/25 17:36 Exam: Moderate tenderness right upper quadrant no guarding no rebound no rigidity Clinical Impression: Abdominal pain
[2025-06-06 18:06] LABS: Collection Type, Urine Clean Catch
[2025-06-06 18:13] LABS: Amorphous Crystals,Urine Present (Absent); Bacteria,Urine 1+; Bilirubin,Urine Negative (Negative); Blood,Urine Negative (Negative); Clarity,Urine Turbid (Clear/Hazy); Color,Urine Lt-Yellow (Lt Yel-Yel); Glucose, Urine Negative (Negative); Ketones,Urine Negative (Negative); Leukocyte Esterase,Urine Positive (Negative); Nitrite,Urine Negative (Negative); PH,Urine 6.5 (5.0-7.0); Protein,Urine Negative (Neg - Trace); RBC,Urine 2 /hpf (0-3); Specific Gravity,Urine 1.010 (1.001-1.035); Squamous Epithelial Cell,Urine 11 /hpf (0-5); Urobilinogen,Urine Negative mg/dL (0.0-1.0); WBC,Urine 5 /hpf (0-5)
[2025-06-06 18:16] LABS: Basophils # (Auto) 0.1 Thou/mm3 (0.0-0.2); Basophils % (Auto) 1 % (0-2.5); Eosinophils # (Auto) 0.3 Thou/mm3 (0.0-0.5); Eosinophils % (Auto) 3 % (0-10); Hematocrit 47.2 % (36.0-46.0); Hemoglobin 16.0 g/dL (12.0-16.0); Immature Granulocytes Auto 0.13 Thou/mm3 (0.00-0.00); Lymphocytes # (Auto) 5.0 Thou/mm3 (1.0-4.8); Lymphocytes % (Auto) 39 % (10-50); Mean Corpuscular HGB Conc 33.9 g/dl (31.0-37.0); Mean Corpuscular Hemoglobin 28.3 pg (25.0-35.0); Mean Corpuscular Volume 83 fL (80-100); Monocytes # (Auto) 0.6 Thou/mm3 (0.0-0.8); Monocytes % (Auto) 5 % (0-12); Neutrophils # (Auto) 6.5 Thou/mm3 (1.8-7.7); Neutrophils % (Auto) 52 % (37-80); Nucleated Red Blood Cell # 0.00 Thou/mm3 (0.00-0.00); Nucleated Red Blood Cell % 0 /100 WBC (0); Platelet Count 301 Thou/mm3 (140-440); RDW Standard Deviation 41.8 fL (36.4-46.3); Red Blood Count 5.66 Miln/mm3 (4.00-5.20); White Blood Count 12.7 Thou/mm3 (3.6-11.0)
[2025-06-06 18:28] LABS: Alanine Aminotransferase 57 U/L (10-49); Albumin, Serum 4.5 gm/dL (3.5-5.0); Albumin/Globulin Ratio 1.7 (1.2-2.2); Alkaline Phosphatase 82 U/L (46-116); Anion Gap 8 (7-16); Aspartate Amino Transferase 40 U/L (0-34); BUN/Creatinine Ratio 11 Ratio (12-20); Bilirubin,Total 0.3 mg/dL (0.3-1.2); Blood Urea Nitrogen 8 mg/dL (9-23); Calcium 9.3 mg/dL (8.3-10.6); Calcium (Corrected) 9.3 mg/dL (8.5-10.1); Carbon Dioxide 24.3 mMol/L (20.0-31.0); Chloride 107 mMol/L (98-107); Creatinine (Component) 0.7 mg/dL (0.6-1.3); Estimated Creatinine Clearance 130.8 mL/min (>60); Globulin 2.6 gm/dL (2.3-3.5); Glucose 105 mg/dL (74-106); Lipase 34 U/L (12-53); Osmolality,Calculated 275 (275-295); Potassium 4.0 mMol/L (3.4-5.1); Sodium 139 mMol/L (136-145); Total Protein 7.1 gm/dL (5.7-8.2); eGFR > 60 See Note
[2025-06-06] MEDS: ONDANSETRON INJ 2 MG/ML INJ 2 ML 4 MG IM (18:31)
--- NOTE | 2025-06-06 20:28 | PD.EDADULT ---
ED General RME/HPI General Chief complaint: Nausea/Vomiting/Diarrhea Stated complaint: NAUSEA, CHILLS, DIARRHEA X2 DAYS Time Seen by Provider: 06/06/25 17:33 Arrival date/time: 06/06/25 17:09 CC: Nausea vomiting HPI patient stopped taking her Seroquel 3 days ago. Patient ran out stating she does not have follow-up appointment in time for refill, next appointment coming up in 2 weeks. Patient this is that not the first time this has happened. The patient states she recently got her kids back , and is denied using any meth for the last 6 weeks. The patient states she no longer wants to take the Seroquel even though she is aware that she has a Bise Polar disorder diagnosis. The patient would just like to combat the nausea, and finished with the withdrawal from the Seroquel. Patient states she follows up at [facility]. Patient denies chest pain shortness of breath difficulty breathing diarrhea. RME / HPI RME / HPI narrative: 06/06/25 17:09 This is a case of 39-year-old female who came into the emergency room due to abdominal pain nausea vomiting today patient also need medication refill for his Seroquel Exam: Moderate tenderness right upper quadrant no guarding no rebound no rigidity Impression: Abdominal pain Related Data Previous Rx's ?Medication ?Instructions ?Recorded dicyclomine 20 mg tablet 20 mg PO QID PRN abdominal pain 12/10/23 #14 tabs ondansetron 4 mg disintegrating 4 mg PO Q8H PRN nausea and 02/02/24 tablet vomiting #10 tabs acetaminophen 500 mg tablet 1,000 mg (2 x 500 mg) PO QID PRN 03/07/24 pain #20 tabs acetaminophen 500 mg capsule 500 mg PO Q6H PRN pain #30 caps 05/30/24 cyclobenzaprine 10 mg tablet 10 mg PO TID PRN muscle spasm #10 05/30/24 tabs lorazepam 2 mg tablet (Ativan) 2 mg PO .bedtime PRN insomnia #10 09/14/24 tabs ondansetron 4 mg disintegrating 4 mg PO Q8H #20 tabs 06/06/25 tablet Allergies Allergy/AdvReac Type Severity Reaction Status Date / Time ketorolac Allergy Severe Itching Verified 06/06/25 17:12 Review of Systems Review of Systems Narrative Review of Systems: GEN: No fever, no chills, no weight loss EYES: No discharge, no visual changes, no pain HEENT: No ear pain, no congestion, no sore throat PULM: No shortness of breath, no cough, no congestion CV: No chest pain, no dyspnea on exertion, no palpitations GI: + nausea, + vomiting, no diarrhea, no pain, no constipation : No frequency, no urgency, no dysuria MUSC/SKEL: No joint pain, no back pain SKIN: No rash PSYCH: No hallucinations, no depression HEME/LYMPH: No easy bleeding or bruising tendencies NEURO: No weakness, no headache Past Medical History Past Medical History NEUROLOGIC: Positive Migraine; Negative Neurological Disorders CARDIAC: Negative Cardiac Disorders, Atrial Fibrillation, Angina, Atherosclerotic Heart Disease, Aneurysm or Congestive Heart Failure RESPIRATORY: Negative Chronic Obstructive Pulmonary Disease (COPD) or Asthma GASTROINTESTINAL: Positive Hepatitis; Negative Gastrointestinal Disorders GENITOURINARY: Positive Genitourinary Disorders; Negative Renal Disease REPRODUCTIVE: Positive Syphilis MUSCULOSKELETAL: Positive Fibromyalgia; Negative Musculoskeletal Disorders ENDOCRINE: Negative Diabetes Mellitus Type 1 or Diabetes Mellitus Type 2 HEMATOLOGIC: Negative Sickle Cell Disease PSYCHO/SOCIAL: Positive Bipolar Disorder, Behavior Problems and Post Traumatic Stress Disorder OTHER HISTORY: Positive MRSA; Negative Autoimmune Disease or Blood Transfusions Family History FAMILY HISTORY: Negative Family Psychiatric Problems, Family Respiratory Disorders, Family Cardiac Disorders, Family Gastrointestinal Problems, Family Cancer, Family Surgery or Family Anesthesia Reaction Surgical History SURGICAL: Positive Abdominal Surgery, Hysterectomy and Tubal Ligation Social History SMOKING STATUS: Current every day smoker SUBSTANCE USE: marijuana and methamphetamine ED Exam Narrative Physical exam: [General: Obese not in mild discomfort but not in any acute distress Head normocephalic HEENT: Within acceptable limits Neck is supple nontender Chest equal chest rise nontender to palpation Respiratory: Clear to auscultation no wheezes crackles or rubs CV: Rate rhythm is regular no murmurs rubs or clicks Abdomen is distended secondary to body habitus soft nontender no masses positive bowel sounds all 4 quadrants Back: No CVA tenderness no spinous process tenderness from cervical spine thoracic and lumbar spine Skin: Intact no petechiae rash induration ulceration or crepitus Extremities: Moving all extremity against resistance cap refill less than 2 seconds neurosensory intact Neuro: Awake alert oriented x3 Glascow coma 15 no focal deficits] Course Course Course Narrative: Patient is strongly motivated to get off the methamphetamines because she now has gotten her child back. The patient also feels that she does not take the Seroquel. I warned her that without the Seroquel her bipolar disorder may return, and the patient may resort back to methamphetamine as a gap for Seroquel. Patient states I will cross that bridge when I get there . Patient is lucid and nontoxic-appearing in mild discomfort but not in any acute distress will discharge home. Quality Measures none Orders Category Date Time Status US gall bladder Stat Exams 06/06/25 17:36 Completed CBC Stat Lab 06/06/25 17:56 Completed Comprehensive Metabolic Panel Stat Lab 06/06/25 17:56 Completed Lipase Stat Lab 06/06/25 17:56 Completed Urinalysis Stat Lab 06/06/25 17:52 Completed Acetaminophen Tab [Tylenol ES Tab] Med 06/06/25 20:27 Once 1,000 mg PO X1 ONE Ondansetron Inj [Zofran Inj] Med 06/06/25 17:57 Discontinued 4 mg IM X1 ONE Ondansetron Odt [Zofran Odt] Med 06/06/25 20:21 Once 4 mg PO X1 ONE Vital Signs Vital signs: Vital Signs Temperature 98.1 F 06/06/25 17:36 Pulse Rate 99 06/06/25 17:36 Respiratory Rate 20 06/06/25 17:36 Blood Pressure 123/85 H 06/06/25 17:36 Pulse Oximetry (%) 96 06/06/25 17:36 Oxygen Delivery Method Room Air 06/06/25 17:36 Discharge Plan Plan Patient Disposition: HOME (Self Care) Patient condition on transfer: Stable Prescriptions/Referrals Prescriptions/Med Rec: New ondansetron 4 mg tablet,disintegrating 4 mg PO Q8H Qty: 20 0RF No Action ondansetron 4 mg tablet,disintegrating 4 mg PO Q8H PRN (Reason: nausea and vomiting) Qty: 10 0RF acetaminophen 500 mg tablet 1,000 mg PO QID PRN (Reason: pain) Qty: 20 0RF cyclobenzaprine 10 mg tablet 10 mg PO TID PRN (Reason: muscle spasm) Qty: 10 0RF acetaminophen 500 mg capsule 500 mg PO Q6H PRN (Reason: pain) Qty: 30 0RF lorazepam [Ativan] 2 mg tablet 2 mg PO .bedtime PRN (Reason: insomnia) Qty: 10 0RF dicyclomine 20 mg tablet 20 mg PO QID PRN (Reason: abdominal pain) Qty: 14 0RF Referrals: Mao Shaffer MD [Physician, Family Practice] - In 1 week No Primary/Family,Physician [Primary Care Provider] - In 1 week Problem List Clinical Impression: Nausea & vomiting, Drug withdrawal Patient/Caregiver Discharge Instructions Education Materials: ED Diet for Vomiting or ..., ED Vomiting (Adult) Additional Instructions: Take the nausea medicine as needed for nausea vomiting. Avoid methamphetamines. Follow-up with your primary care provider. If you need to restart on the Seroquel. Print Language: Maltese Stand Alone Forms: Terese Award Info., Patient Portal Info Letter, Work/School Release HETAL/APOLONIA Supervising Physician HETAL/APOLONIA Supervising Physician: Israel Durham ENP [facility] Clinical Information Provided by: patient Medical Records reviewed [facility] Meds/Rx considered, not ordered None Labs/Rad/Tests considered, not ordered None Chronic Illness/Social Conditions Explain: Bipolar disorder Labs Labs: interpreted by oh Lab(s) Interpretation(s): CBC shows a mild leukocytosis of 12.7 no anemia thrombocytopenia CMP shows no significant electrolyte imbalances renal impairment T. bili is normal very mild transaminitis. Lipase is negative Urine is turbid leukocyte esterase positive squamous epithelia 51+ bacteria nitrite negative. Low index of suspicion for UTI. Medication Administration(s) Medication Administration History Acetaminophen (Acetaminophen 500 Mg Tablet) 1,000 mg PO X1 ONE Stop: 06/06/25 20:28 Ondansetron HCl (Ondansetron Odt 4 Mg Tabrap) 4 mg PO X1 ONE; Protocol Stop: 06/06/25 20:22 Discontinued Medications Ondansetron HCl (Ondansetron Inj 2 Mg/Ml Inj 2 Ml) 4 mg IM X1 ONE; Protocol Stop: 06/06/25 17:58 Last Admin: 06/06/25 18:31 Dose: 4 mg Documented By: LUCRECIA
[2025-06-06 20:32] VITALS: BP 110/85; PULSE 93; RESP 19; TEMP 37.2; O2SAT 98
[2025-06-06] MEDS: ONDANSETRON ODT 4 MG TABRAP PO (20:33)
[2025-06-06] MEDS: ACETAMINOPHEN 500 MG TABLET 1000 MG PO (20:33)
== END 2025-06-06 21:34 | disposition home or self-care (01) ==
PROVIDERS: Nurse Practitioner Family; Emergency Provider Emergency Medicine
DX: F19.239 Other psychoactive substance dependence with withdrawal, unspecified (principal); F31.9 Bipolar disorder, unspecified
CPT/HCPCS: 36415; 76705; 80053; 81001; 83690; 85025; 96372; 99283; J2405; Q0162; A9270